=== PATIENT | female | born 1995 | race Caucasian/White ===

== ENCOUNTER → 2017-08-17 18:49 | Outpatient (CLI) | payer MEDICAID, SELFPAY ==
[2015-03-02 20:17] VITALS: BMI 22.6
[2015-03-04 14:00] VITALS: BP 112/70
[2017-08-17 20:37] LABS: Chlamydia Trachomatis by PCR Negative (Negative); Neisserai gonorrhoeae by PCR Negative (Negative); Probe Check PASS; Sample Adequacy Control PASS; Specimen Processing Control PASS
[2017-08-22 17:03] LABS: HPV Reflexed? NOT INDICATED
== END ==
PROVIDERS: Visit Provider Obstetrics & Gynecology
DX: Z11.3 Encounter for screening for infections with a predominantly sexual mode of transmission (principal); Z12.4 Encounter for screening for malignant neoplasm of cervix
CPT/HCPCS: 87491; 87591; 88175; G0145

== ENCOUNTER → 2017-09-01 15:19 | Outpatient (CLI) | payer MEDICAID, SELFPAY ==
[2017-09-01 17:42] LABS: Absolute Lymphocyte Count 1.69 X10^3/ul (0.83-4.51); Absolute Neutrophil Count 4.7 X10^3/uL (2.0-7.7); Basophil# 0.02 X10^3/uL; Basophil% 0.3 % (0-1); Eosinophils% 1.4 % (0-5); Hematocrit 36.5 % (37-47); Hemoglobin 13.1 g/dl (12.0-15.0); Lymphocyte # 1.69 X10^3/ul (4.0); Lymphocyte % 23.3 % (19-41); Mean Corp Hgb Conc 35.9 g/gl (32-36); Mean Corpuscular Volume 83.7 fL (81-99); Mean Platelet Vol. 11.2 fl (6.2-12.0); Monocyte# 0.72 X10^3/uL; Monocyte% 9.9 % (0-10); Neutrophil # 4.73 X10^3/uL (2.7-7.7); Neutrophil % 65.1 % (47-70); Platelet Count 184 K/mm3 (150-450); RBC Distribution Width CV 12.5 % (11.6-14.6); RBC Distribution Width SD 37.7 fl (35.1-43.9); Red Blood Count 4.36 M/mm3 (4.2-5.4); White Blood Count 7.3 K/mm3 (4.4-11.0)
[2017-09-01 17:43] LABS: POSITIVE COUNT NO; POSITIVE DIFFERENTIAL NO; POSITIVE MORPHOLOGY NO
[2017-09-01 17:55] LABS: Color, Urine Straw (Yellow); Glucose, Dipstick Normal (Normal); Ketone-Dipstick Negative (Negative); Leukocyte Esterase-Dipstick 100 /ul (Negative); Nitrite-Dipstick Negative (Negative); Occult Blood-Urine Negative /ul (Negative); Protein-Dipstick Negative (Negative); Urine Bilirubin Dipstick Negative (Negative); Urine Clarity Clear (Clear); Urine Urobilinogen Normal (Normal); Urine pH 6.5 (5.0 - 8.0)
[2017-09-01 18:27] LABS: Thyroid Stim Hormone (TSH) 0.62 uIU/mL (0.358-3.74)
[2017-09-01 18:33] LABS: HIV - WCH Non-Reactive (Nonreactive); Rubella IgG 98.9 IU/mL
[2017-09-01 18:46] LABS: COTININE Drug Screen Negative (<200 ng/mL)
[2017-09-01 20:01] LABS: Amphetamine Urine VISTA NEGATIVE (<1000 ng/mL); Barbiturate Urine VISTA NEGATIVE (< 200 ng/mL); Benzodiazepine Urine VISTA NEGATIVE (< 200 ng/mL); Cocaine Urine VISTA NEGATIVE (< 300 ng/mL); Ecstacy Urine VISTA NEGATIVE (< 500 ng/mL); Methadone Urine VISTA NEGATIVE (< 300 ng/mL); PCP Urine VISTA NEGATIVE (< 25 ng/mL); THC Urine VISTA NEGATIVE (< 50 ng/mL); Vista UDS pH Range 6
[2017-09-03 01:51] LABS: Prenatal RPR NONREACTIVE (NONREACTIVE)
[2017-09-03 11:11] LABS: HEPATITIS B SURFACE AG Negative (Negative)
[2017-09-03 11:12] LABS: Hep C Antibodies 0.1 s/co ratio (0.0-0.9)
== END ==
PROVIDERS: Visit Provider Obstetrics & Gynecology
DX: Z34.81 Encounter for supervision of other normal pregnancy, first trimester (principal)
CPT/HCPCS: 36415; 80307; 81002; 84443; 85025; 86703; 86762; 86803; 87340

== ENCOUNTER → 2018-01-10 13:57 | Outpatient (CLI) | payer MEDICAID, SELFPAY ==
[2018-01-10 14:34] LABS: Hematocrit 29.7 % (37-47); Hemoglobin 10.3 g/dl (12.0-15.0); Mean Corp Hgb Conc 34.7 g/gl (32-36); Mean Corpuscular Hgb 30.2 pg (27.0-32.0); Mean Corpuscular Volume 87.1 fL (81-99); Mean Platelet Vol. 10.2 fl (6.2-12.0); Platelet Count 163 K/mm3 (150-450); RBC Distribution Width CV 13.1 % (11.6-14.6); RBC Distribution Width SD 41.3 fl (35.1-43.9); Red Blood Count 3.41 M/mm3 (4.2-5.4); White Blood Count 7.5 K/mm3 (4.4-11.0)
[2018-01-10 14:39] LABS: Scan Indicated on CBC? Y/N NO
[2018-01-10 14:57] LABS: Glucose Challenge Gest 1H 50g 143 mg/dL (70-140)
== END ==
PROVIDERS: Visit Provider Obstetrics & Gynecology
DX: Z34.82 Encounter for supervision of other normal pregnancy, second trimester (principal)
CPT/HCPCS: 36415; 82950; 85027

== ENCOUNTER → 2018-01-16 09:43 | Outpatient (CLI) | payer MEDICAID, SELFPAY ==
[2018-01-16 10:29] LABS: Glucose GTT-Gestation. Fasting 76 mg/dL (<105)
[2018-01-16 12:07] LABS: Glucose GTT-Gestational 1 Hr 158 mg/dL (<190)
[2018-01-16 13:08] LABS: Glucose GTT-Gestational 2 Hr 162 mg/dL (<165)
[2018-01-16 14:17] LABS: Glucose GTT-Gestational 3 Hr 138 L (<145)
== END ==
PROVIDERS: Visit Provider Obstetrics & Gynecology
DX: O24.912 Unspecified diabetes mellitus in pregnancy, second trimester (principal)
CPT/HCPCS: 36415; 82951; 82952

== ENCOUNTER → 2018-03-08 16:13 | Outpatient (CLI) | payer MEDICAID, SELFPAY ==
[2018-03-08 18:29] LABS: Group B Strep DNA By PCR Negative (Negative); Internal Control PASS; Probe Check PASS; Specimen Processing Control PASS
== END ==
PROVIDERS: Visit Provider Obstetrics & Gynecology
DX: Z36.85 Encounter for antenatal screening for Streptococcus B (principal)
CPT/HCPCS: 87081; 87653

== ENCOUNTER 2018-03-24 13:30 | Inpatient (IN) | payer MEDICAID, SELFPAY ==
[2018-03-24 13:04] VITALS: BMI 21.2
[2018-03-24 13:20] LABS: ROM Internal Control Test YES-OK TO RESULT pt. (Internal QC); ROM Patient Test POSITIVE (Negative)
[2018-03-24] MEDS: Lactated Ringers 1,000 ML 50 ML IV (13:45)
[2018-03-24 14:07] LABS: Hematocrit 33.2 % (37-47); Mean Corp Hgb Conc 33.1 g/gl (32-36); Mean Corpuscular Hgb 29.6 pg (27.0-32.0); Mean Corpuscular Volume 89.5 fL (81-99); Mean Platelet Vol. 11.1 fl (6.2-12.0); Platelet Count 136 K/mm3 (150-450); RBC Distribution Width CV 13.7 % (11.6-14.6); RBC Distribution Width SD 44.5 fl (35.1-43.9); Red Blood Count 3.71 M/mm3 (4.2-5.4); Scan Indicated on CBC? Y/N NO; White Blood Count 9.1 K/mm3 (4.4-11.0)
[2018-03-24 14:19] LABS: Amphetamine Urine VISTA NEGATIVE (<1000 ng/mL); Barbiturate Urine VISTA NEGATIVE (< 200 ng/mL); Benzodiazepine Urine VISTA NEGATIVE (< 200 ng/mL); Cocaine Urine VISTA NEGATIVE (< 300 ng/mL); Ecstacy Urine VISTA NEGATIVE (< 500 ng/mL); Methadone Urine VISTA NEGATIVE (< 300 ng/mL); PCP Urine VISTA NEGATIVE (< 25 ng/mL); THC Urine VISTA NEGATIVE (< 50 ng/mL); Vista UDS pH Range 7
[2018-03-24] MEDS: Oxytocin 30 units/NS 500 ml 30 UNITS/500 ML IV.SOLN IV (14:30)
[2018-03-24] MEDS: Oxytocin 30 units/NS 500 ml 30 UNITS/500 ML IV.SOLN 334 UNITS IV (18:30)
--- NOTE | 2018-03-24 18:51 | PCM.OB.VAG ---
Vaginal Delivery Maternal Presentation: Active Labor 38w3d ega presenting with SROM at home. Amniotic Membrane Rupture Type: Spontaneous at home Rupture of Membrane time: 0630 Amniotic Fluid Description: Clear Final DANUTA: 04/04/18 Final DANUTA Source: US <20 weeks Gestational age: 38 Weeks and 3 Days Date of Procedure: 03/24/18 Pre-Operative Diagnosis: Labor Post-Operative Diagnosis: Same Surgery/ Procedure Performed: Spontaneous Vaginal Delivery Type of Anesthesia: None Description of Procedure: Presented with SROM at home with clear fluid noted. Progressed in spontaneous labor and given pitocin augmentation. Progressed to FD then pushed for less than 10 minutes to delivery a live female without complication. Apgars 8/9. Delayed cord clamping employed. Active cry shortly after delivery. Mouth suctioned with bulb suction. Baby then placed on mom's chest for skin to skin. Cord then clamped and cut. The placenta was delivered spontaneously intact with a centrally located 3VC. The uterus contracted well. Inspection revealed an intact cervix, upper vagina. A small superficial posterior vaginal scratch repaired with one figure of eight suture of 2-0 Vicryl. Presentation: Vertex Placental Delivery Description: Spontaneous Placenta Disposition: [facility] Percentage of Placenta Abruption: 0 Cord Vessel Description: 3 Vessels Nuchal Cord Compression: With compression Cord Entanglement: None Estimated Blood Loss: 200cc A gender: Female (1 minute): 8 (5 minute): 9 Episiotomy Description: None Laceration: None Medications given after delivery: IV Pitocin Complications: None
[2018-03-24] MEDS: Oxytocin 30 units/NS 500 ml 30 UNITS/500 ML IV.SOLN 167 UNITS IV (19:00)
--- NOTE | 2018-03-24 19:03 | PCM.DCVAG ---
Discharge Diet: No Restrictions Discharge Activity: Return to Normal Activity, May Drive, May Shower Return to work on:: 05/21/18 May resume sexual activity in: 4-6 weeks Call your doctor if your incision/area has: Sudden Increased Bleeding, Increased Pain/ Swelling, Foul Smelling Discharge Call your doctor if you observe: Fever of 101 or Higher, Inability to urinate, Inability to have a bowel movement, Using more than one pad per hour, Shortness of breath, Chest pain, Calf discomfort, Uncontrolled pain Cleanse incision/area with: Soap & Water Additional Instructions: If you experience any of the following, contact your healthcare provider. Bleeding that soaks a pad every hour for 2 hours Fever 100.4 or higher Unrelieved incision or abdominal pain Swelling, redness, discharge or bleeding from your incision or episiotomy site Your incision begins to separate Problems urinating (including inability to urinate or burning while urinating). Visual changes Severe headache Flu-like symptoms Pain or redness in one of both of your breasts Pain, warmth, tenderness or swelling in your legs, especially the calf area Frequent nausea and vomiting Symptoms of depression or anxiety If you experience any of the following, call 911 or go to the nearest Emergency Room. Chest pain Problems breathing Seizure activity Partial or complete paralysis of a body part, slurred speech, weakness or drooping of the face, or a sudden inability to walk or hold your balance Allergies/Adverse Reactions: Allergies No Known Allergies Allergy (Verified 03/02/15 20:18) Medications to take at Discharge Ferrous Sulfate [Iron Supplement] 325 mg PO BID #60 tablet 03/04/15 Ibuprofen 600 mg PO Q6H PRN PRN #30 tab 03/24/18 The following prescriptions were given: Ibuprofen 600 mg PO Q6H PRN PRN #30 tab PRN Reason: pain or cramping Please Follow Up With: Javon Polo MD When: 6 weeks Primary Care Physician: Care Physician,No Primary [Primary Care Provider] - Test Results: Test results from this visit will be discussed in further detail at your follow-up appointment, if applicable. Proposed Discharge Date: 03/26/18
[2018-03-24] MEDS: 0.9% Saline Lock 10 ML Syringe IV (20:09)
[2018-03-24 22:42] VITALS: BP 112/71; PULSE 89; RESP 15; TEMP 37.7; O2SAT 98
[2018-03-25 03:16] VITALS: BP 109/72; PULSE 92; RESP 16; TEMP 36.5; O2SAT 100
[2018-03-25 05:41] LABS: Hematocrit 30.4 % (37-47); Hemoglobin 10.2 g/dl (12.0-15.0); Mean Corp Hgb Conc 33.6 g/gl (32-36); Mean Corpuscular Hgb 29.7 pg (27.0-32.0); Mean Corpuscular Volume 88.4 fL (81-99); Platelet Count 122 K/mm3 (150-450); RBC Distribution Width CV 13.6 % (11.6-14.6); RBC Distribution Width SD 43.7 fl (35.1-43.9); Red Blood Count 3.44 M/mm3 (4.2-5.4); White Blood Count 10.7 K/mm3 (4.4-11.0)
[2018-03-25 05:42] LABS: Scan Indicated on CBC? Y/N NO
[2018-03-25 07:58] VITALS: BP 105/61; PULSE 81; RESP 16; TEMP 36.9
--- NOTE | 2018-03-25 08:16 | PCM.PN.OB ---
Subjective: Doing well. No specific complaints. Bleeding light. Objective: Afeb VSS hgb stable - Physical Exam General: Alert, Oriented x3, Cooperative, No apparent distress Lungs: Clear to auscultation, Normal air movement Cardiovascular: Regular rate, Regular Rhythm Abdomen: Soft, Non Tender, Non-Distended, - - Fundus firm nontender Extremities: No edema, No Calf Tenderness Skin: No rashes Neurological: Neuro grossly intact Psych/Mental Status: Normal Affect Comment: Lochia light Vital Signs Temp Pulse Resp BP Pulse Ox 98.5 F 81 16 105/61 100 03/25/18 07:58 03/25/18 07:58 03/25/18 07:58 03/25/18 07:58 03/25/18 03:16 Oxygen Delivery Method Room Air Weight: 131 lb 6.328 oz Body Mass Index (BMI) 21.2 Intake and Output for Last 24 Hours 03/23/18 03/24/18 03/25/18 23:59 23:59 23:59 Intake Total 200 / 200 Output Total 1100 / 1100 Balance -900 / -900 Laboratory Tests Past 24 Hrs 03/24/18 03/24/18 03/24/18 13:05 13:45 13:45 WBC 9.1 RBC 3.71 L Hgb 11.0 L Hct 33.2 L MCV 89.5 MCH 29.6 MCHC 33.1 RDW 13.7 RDW Differential 44.5 H Plt Count 136 L MPV 11.1 Vag Amniotic Fld Detect POSITIVE H Urine Opiates Screen Urine Methadone Screen Ur Barbiturates Screen Ur Phencyclidine Scrn Ur Amphetamines Screen U Methamphetamin-MDMA U Benzodiazepines Scrn Urine Cocaine Screen U Cannabinoids Screen Ur Drug Screen Comment Blood Type A POSITIVE Antibody Screen NEGATIVE 03/24/18 03/25/18 13:45 05:20 WBC 10.7 RBC 3.44 L Hgb 10.2 L Hct 30.4 L MCV 88.4 MCH 29.7 MCHC 33.6 RDW 13.6 RDW Differential 43.7 Plt Count 122 L MPV 11.0 Vag Amniotic Fld Detect Urine Opiates Screen NEGATIVE Urine Methadone Screen NEGATIVE Ur Barbiturates Screen NEGATIVE Ur Phencyclidine Scrn NEGATIVE Ur Amphetamines Screen NEGATIVE U Methamphetamin-MDMA NEGATIVE U Benzodiazepines Scrn NEGATIVE Urine Cocaine Screen NEGATIVE U Cannabinoids Screen NEGATIVE Ur Drug Screen Comment Blood Type Antibody Screen Medical Necessity - Tobacco Use Smoking Status: Never smoker Assessment/Plan Doing well on PP day#1. Continue routine PP care.
[2018-03-25] MEDS: Ferrous Sulfate 325 MG Tablet PO ×2 (11:07→16:24)
[2018-03-25 14:00] VITALS: BP 105/68; PULSE 87; RESP 16; TEMP 36.9
[2018-03-25 16:00] VITALS: BP 105/68; PULSE 87; RESP 18; TEMP 36.9
[2018-03-25] MEDS: Senna/Docusate Sodium 1 Tablet PO (16:24)
[2018-03-25 19:45] VITALS: BP 106/70; PULSE 84; RESP 16; TEMP 37.1
[2018-03-26 03:00] VITALS: BP 103/58; PULSE 68; RESP 16; TEMP 36.9
--- NOTE | 2018-03-26 07:14 | PCM.PN.OB ---
Subjective: No speciifc complaints. Bleeding light. Bottle feeding. Objective: Afeb VSS Hgb stable - Physical Exam General: Alert, Oriented x3, Cooperative, No apparent distress Lungs: Clear to auscultation, Normal air movement Cardiovascular: Regular rate, Regular Rhythm Abdomen: Non Tender, Non-Distended, - - Fundus firm nontender Extremities: No edema, No Calf Tenderness Skin: No rashes Neurological: Neuro grossly intact Psych/Mental Status: Normal Affect Comment: Lochia light Vital Signs Temp Pulse Resp BP Pulse Ox 98.4 F 68 16 103/58 L 100 03/26/18 03:00 03/26/18 03:00 03/26/18 03:00 03/26/18 03:00 03/25/18 03:16 Oxygen Delivery Method Room Air Weight: 131 lb 6.328 oz Body Mass Index (BMI) 21.2 Intake and Output for Last 24 Hours 03/24/18 03/25/18 03/26/18 23:59 23:59 23:59 Intake Total 200 / 200 Output Total 1100 / 1100 Balance -900 / -900 Medical Necessity - Tobacco Use Smoking Status: Never smoker Assessment/Plan Doing well on PP day#2. Cleared for discharge home today. Home going instructions and warnings given.
--- NOTE | 2018-03-26 07:16 | PCM.DC.SUM ---
Discharge Date and Diagnosis Date of Admission: 03/24/18 Date of Discharge: 03/26/18 - Primary Discharge Diagnosis S/P Hospital Course and Treatment Consultations 03/24/18 13:40 Consult: Anesthesia Routine Comment: Reason For Exam: LABOR Operations: None Procedures: - - Summary of Care Provided: The patient is a 22 year old F [admitted in active labor. Progressed to FD then pushed for a short time to deliver a live without complication. Post course unremarkable. Discharged home on PP day#2.] Discharge Diet: No Restrictions Discharge Activity: Return to Normal Activity, May Drive, May Shower Return to work on:: 05/21/18 May resume sexual activity in: 4-6 weeks Call your doctor if your incision/area has: Sudden Increased Bleeding, Increased Pain/ Swelling, Foul Smelling Discharge Call your doctor if you observe: Fever of 101 or Higher, Inability to urinate, Inability to have a bowel movement, Using more than one pad per hour, Shortness of breath, Chest pain, Calf discomfort, Uncontrolled pain Cleanse incision/area with: Soap & Water Home Medications: Medications to take at Discharge Ferrous Sulfate [Iron Supplement] 325 mg PO BID #60 tablet 03/04/15 Ibuprofen 600 mg PO Q6H PRN PRN #30 tab 03/24/18 Following Prescrptions Were Given to Patient: Ibuprofen 600 mg PO Q6H PRN PRN #30 tab PRN Reason: pain or cramping Primary Care Physician: Care Physician,No Primary [Primary Care Provider] - Please Follow Up With: Javon Polo MD When: 6 weeks Disposition: Home Minutes spent on discharge:: 15 Patient Condition:: Good Medical Necessity - Tobacco Use Smoking Status: Never smoker Meaningful Use Info Meaningful Use Diagnoses (Choose all that apply): None applicable
[2018-03-26] MEDS: Senna/Docusate Sodium 1 Tablet PO (08:10)
[2018-03-26] MEDS: Ferrous Sulfate 325 MG Tablet PO (08:10)
[2018-03-26 08:21] VITALS: BP 109/72; PULSE 74; RESP 18; TEMP 37
== END 2018-03-26 12:40 | disposition home or self-care (01) | DRG 373 ==
LOC: WPOUT 13:36 → WP 18:35
PROVIDERS: Admitting Provider Obstetrics & Gynecology; Visit Provider Obstetrics & Gynecology
DX: O69.81X0 Labor and delivery complicated by cord around neck, without compression, not applicable or unspecified (principal); O71.4 Obstetric high vaginal laceration alone; Z3A.38 38 weeks gestation of pregnancy; Z37.0 Single live birth
CPT/HCPCS: 59050; 80307; 84112; 85027; 86850; 86900; 99218; J7120; A4216; G0378

== ENCOUNTER → 2019-04-04 | Outpatient (CLI) | payer MEDICAID, SELFPAY ==
[2019-04-04 15:52] LABS: Absolute Lymphocyte Count 1.32 X10^3/uL (0.83-4.51); Absolute Neutrophil Count 5.7 X10^3/uL (2.0-7.7); Basophil# 0.02 X10^3/uL; Basophil% 0.3 % (0-1); Eosinophil# 0.07 X10^3/uL; Eosinophils% 0.9 % (0-5); Hematocrit 33.1 % (37-47); Hemoglobin 11.2 g/dL (12.0-15.0); Lymphocyte # 1.32 X10^3/ul (4.0); Lymphocyte % 16.8 % (19-41); Mean Corp Hgb Conc 33.8 g/dL (32-36); Mean Corpuscular Hgb 29.8 pg (27.0-32.0); Mean Platelet Vol. 10.8 fl (6.2-12.0); Monocyte# 0.75 X10^3/uL; Monocyte% 9.5 % (0-10); NRBC Flagged by Analyzer 0 % (0-5); Neutrophil # 5.69 X10^3/uL (2.7-7.7); Neutrophil % 72.1 % (47-70); Platelet Count 184 K/mm3 (150-450); RBC Distribution Width CV 13.5 % (11.6-14.6); RBC Distribution Width SD 43.5 fl (35.1-43.9); Red Blood Count 3.76 M/mm3 (4.2-5.4); White Blood Count 7.9 K/mm3 (4.4-11.0)
[2019-04-04 16:07] LABS: Amphetamine Urine VISTA NEGATIVE (<1000 ng/mL); Barbiturate Urine VISTA NEGATIVE (< 200 ng/mL); Benzodiazepine Urine VISTA NEGATIVE (< 200 ng/mL); Cocaine Urine VISTA NEGATIVE (< 300 ng/mL); Ecstacy Urine VISTA NEGATIVE (< 500 ng/mL); Methadone Urine VISTA NEGATIVE (< 300 ng/mL); PCP Urine VISTA NEGATIVE (< 25 ng/mL); THC Urine VISTA NEGATIVE (< 50 ng/mL); Vista UDS pH Range 6
[2019-04-04 16:20] LABS: Color, Urine Yellow (Yellow); Glucose, Dipstick Normal (Normal); Ketone-Dipstick Negative (Negative); Leukocyte Esterase-Dipstick 100 /ul (Negative); Nitrite-Dipstick Negative (Negative); Occult Blood-Urine 150 /ul (Negative); Protein-Dipstick Negative (Negative); Urine Bilirubin Dipstick Negative (Negative); Urine Clarity Clear (Clear); Urine Urobilinogen Normal (Normal)
[2019-04-05 02:39] LABS: Prenatal RPR NONREACTIVE (NONREACTIVE)
[2019-04-05 11:09] LABS: HIV - WCH Non-Reactive (Nonreactive); Hepatitis B Surface Antigen Non-Reactive (Nonreactive); Hepatitis C Antibody Non-Reactive (Nonreactive); Rubella IgG 113.6 IU/mL
== END | disposition home or self-care (01) ==
LOC: WOBLAB 14:00
PROVIDERS: Visit Provider Obstetrics & Gynecology
DX: Z34.82 Encounter for supervision of other normal pregnancy, second trimester (principal)
CPT/HCPCS: 36415; 80307; 81002; 84443; 85025; 86703; 86762; 86803; 87340

== ENCOUNTER → 2019-06-06 13:05 | Outpatient (CLI) | payer MEDICAID, SELFPAY ==
[2019-06-06 13:49] LABS: Hematocrit 29.1 % (37-47); Hemoglobin 9.6 g/dL (12.0-15.0); Mean Corpuscular Hgb 29.1 pg (27.0-32.0); Mean Corpuscular Volume 88.2 fL (81-99); Mean Platelet Vol. 10.8 fl (6.2-12.0); Platelet Count 151 K/mm3 (150-450); RBC Distribution Width CV 12.7 % (11.6-14.6); RBC Distribution Width SD 40.8 fl (35.1-43.9); White Blood Count 5.8 K/mm3 (4.4-11.0)
[2019-06-06 15:58] LABS: Glucose Challenge Gest 1H 50g 127 mg/dL (70-140)
== END ==
PROVIDERS: Visit Provider Obstetrics & Gynecology
DX: Z34.83 Encounter for supervision of other normal pregnancy, third trimester (principal)
CPT/HCPCS: 36415; 82950; 85027

== ENCOUNTER → 2019-08-08 16:26 | Outpatient (CLI) | payer MEDICAID, SELFPAY | PROVIDERS: Referring Provider Advanced Practice Midwife; Visit Provider Advanced Practice Midwife | DX: Z36.85 Encounter for antenatal screening for Streptococcus B (principal) | CPT/HCPCS: 87081 ==

== ENCOUNTER 2019-08-29 23:49 | Inpatient (IN) | payer MEDICAID, SELFPAY ==
[2019-08-29 23:55] VITALS: BMI 23.3
[2019-08-30] MEDS: Lactated Ringers 1,000 ML 50 ML IV (00:50)
[2019-08-30] MEDS: miSOPROStol 25 MCG TABLET PO (01:03)
[2019-08-30 01:07] LABS: Absolute Lymphocyte Count 1.82 X10^3/uL (0.83-4.51); Absolute Neutrophil Count 4.4 X10^3/uL (2.0-7.7); Basophil# 0.01 X10^3/uL; Basophil% 0.1 % (0-1); Eosinophil# 0.12 X10^3/uL; Eosinophils% 1.7 % (0-5); Hematocrit 32.8 % (37-47); Hemoglobin 11.3 g/dL (12.0-15.0); Lymphocyte # 1.82 X10^3/ul (4.0); Lymphocyte % 25.2 % (19-41); Mean Corp Hgb Conc 34.5 g/dL (32-36); Mean Corpuscular Hgb 30.2 pg (27.0-32.0); Mean Corpuscular Volume 87.7 fL (81-99); Monocyte# 0.88 X10^3/uL; Monocyte% 12.2 % (0-10); NRBC Flagged by Analyzer 0 % (0-5); Neutrophil # 4.36 X10^3/uL (2.7-7.7); Neutrophil % 60.2 % (47-70); Platelet Count 136 K/mm3 (150-450); RBC Distribution Width SD 48.2 fl (35.1-43.9); Red Blood Count 3.74 M/mm3 (4.2-5.4); White Blood Count 7.2 K/mm3 (4.4-11.0)
[2019-08-30] MEDS: Lactated Ringers 500 ML 999 ML IV (02:09)
--- NOTE | 2019-08-30 05:04 | HP.PCM_ITS ---
- Problem List (1) 39 weeks gestation of Status: Acute (2) Elective induction of labor planned Status: Acute History Date of Admission: 08/29/19 Final DANUTA: 08/30/19 Final DANUTA Source: US <20 weeks Gestational age: 40 Weeks and 0 Days History of this : This is a 23 year-old, G [3], P [2], at 40 weeks gestational age. Here for elec tive induction of labor. Allergies No Known Allergies Allergy (Verified 03/02/15 20:18) Smoking Status: Never smoker Alcohol: None Number of Fetus(es): 1 NST - FHR Rate Baby A Baseline: 140 Variability:: Moderate Accelerations:: 15 x 15 Decelerations:: None NST Reactive:: Yes FHR Category:: Category I Uterine Activity:: Q6 minutes History Past Pregnancies: Past Pregnancies Delivery Date Name GA/ Weeks Outcome Route Wt Sex Labor Length Delivery Location Renata FOB 02/28 41 live vag 8.3 F 23 Mariama None 04/03 38 live vag 6.14 F 12 Mariama None Labs: Mom's Labs & Results 08/30/19 08/30/19 00:50 00:50 WBC 7.2 RBC 3.74 L Hgb 11.3 L Hct 32.8 L MCV 87.7 MCH 30.2 MCHC 34.5 RDW Std Deviation 48.2 H RDW Coeff of Ricardo 15.0 H Plt Count 136 L MPV 11.0 Immature Gran % (Auto) 0.600 Neut % (Auto) 60.2 Lymph % (Auto) 25.2 [place] % (Auto) 12.2 H Eos % (Auto) 1.7 Baso % (Auto) 0.1 Absolute Neuts (auto) 4.4 Absolute Lymphs (auto) 1.82 Nucleated RBC % 0 Blood Type A POSITIVE Antibody Screen NEGATIVE Course Did the patient receive Yes care? Labs Blood Type: A RH: POSITIVE RPR/VDRL/Syphilis Nonreactive Rubella status Immune HbSAg Negative Date Done: 04/04/19 Chlamydia Negative Gonorrhea Negative HIV/AIDS Non-Reactive Group B Strep: Negative Current Obstetrical History Gestational Diabetes No Incompetent Cervix No Infertility No IUGR No Macrosomia No Hypertension/Pre-eclampsia No Placenta Previa/Abruption No PTL/PROM No Uterine anomaly No Oligohydramnios No Polyhydramnios No Multiple gestation No Past Medical History Asthma No Diabetes No Hypertension No Heart disease No Mitral valve prolapse No Neurologic/Seizure disorder/ No Migraines Kidney disease No Liver disease No Varicosities No Clotting disorders/Hx of DVT No Thyroid Dysfunction No Other medical diseases No Psychiatric disorders No Major trauma No Abnormal PAP smear No Sleep apnea No Mammogram in the last 2 years No Social History Marital Status: SINGLE Alleged father Frederick Hx Smoking No Smoking Status Never smoker Expected Delivery Method: Spontaneous Vaginal Number of Visits: 12 Review of Systems Constitutional: Denies: Chills, Fever, Weight Change HEENT: Denies: Head Aches, Sinus Congestion, Sinus Drainage Cardiovascular: Denies: Chest Pain, Palpitations Respiratory: Denies: Cough, Shortness of breath at rest, Sputum production Gastrointestinal: Denies: Abdominal Pain, Nausea, Vomiting Genitourinary: Denies: Dysuria Musculoskeletal: Denies: Joint Pain, Joint Tenderness Skin: Denies: Rash, Wounds Neurological: Denies: Numbness, Tingling, Focal weakness Psychiatric: Denies: Anxiety, Depression, Homicidal Ideations, Suicidal Ideations Hematologic/ Lymphatic: Denies: Easy Bruising, Easy Bleeding Physical Exam General: Alert, Oriented x3, No apparent distress HEENT: Atraumatic, Normocephalic. Negative for: Thyromegaly, Lymphadenopathy Cardiovascular: Regular rate, Regular Rhythm Lungs: Clear to auscultation Abdomen: Bowel Sounds Present, Gravid Neurological: Deep Tendon Reflexes 2+/4 and Symmetrical, Neuro grossly intact [facility] LAB[employer]ER: Normal external genitalia. Negative for: Vulvar lesions Estimated gestational size: Appropriate for gestational size Presentation: Cephalic Cervix Dilation (cm): 3 - per RN report Station: -2 Effacement (%): 40 Assessment/Plan All Active Problems 39 weeks gestation of (Acute) Elective induction of labor planned (Acute) A: This is a 23 year-old, G [3], P [2], at 40 weeks gestational age. Elective induction of labor with Cytotec SVE 340/-2 per RN report after 1st dose of Cytotec UC Q2 minutes P: Continue to allow to labor Recheck SVE [id number] Expect
[2019-08-30] MEDS: miSOPROStol 25 MCG TABLET VAGINAL (08:32)
--- NOTE | 2019-08-30 09:11 | PN_ITS ---
Progress Note S: Feeling well and reports contractions are a 7/10 on the pain scale. Excited for delivery O: VSS with maternal FHR slightly elevated 90-110 FHR baseline 140, + accels, - decels, moderate variability SVE per RN report at 0520 6/70/-2. SVE at 0830 per designer/writer's check 1/thick/-3. External OS is very thin and at 7cm, but thick funneling to 1cm UC 2-4minutes A: Cervix still thick and needs to thin out UC 2-4 minutes on her own FHR category I reactive P: One dose of Cytotec vaginal placed near cervix Recheck SVE at 1230 Expect
[2019-08-30] MEDS: Lactated Ringers 1,000 ML 200 ML IV ×2 (10:38→15:38)
--- NOTE | 2019-08-30 13:00 | PCM.PN.BLA ---
Progress Note S: Feeling well, but contractions are feeling a lot stronger O: VSS FHR baseline 140, + accels, - decels, moderate variability SVE external OS 9, internal OS 5, 50%/-1 soft posterior UC Q 2 minutes A: Cervix remains thicker/swollen at 8 o'clock to 2 o'clock FHR category I reactive P: Discussed positions to help cervix thin out. Will try a deep hands and knees and tank stave assembler position. If cervix remains swollen will try IV Benadryl Recheck SVE at 1430 or with urge to push Expect
[2019-08-30] MEDS: Oxytocin 30 units/NS 500 ml 30 UNITS/500 ML IV.SOLN 334 UNITS IV (16:28)
[2019-08-30] MEDS: Methylergonovine 0.2 MG/ML Ampul IM (17:02)
[2019-08-30] MEDS: Cefazolin 1 GM/50 ML BAG IV (17:32)
[2019-08-30] MEDS: 0.9% Saline Lock 10 ML Syringe IV (19:23)
[2019-08-30 19:37] VITALS: BP 107/69; PULSE 95; RESP 18; TEMP 37.1
--- NOTE | 2019-08-30 20:37 | PCM.OPRPT ---
Problem List (1) 39 weeks gestation of Status: Inactive (2) Elective induction of labor planned Status: Inactive (3) S/P NVD Status: Acute Vaginal Delivery Maternal Presentation: Elective Induction Method of Induction: Cytotec Amniotic Membrane Rupture Type: Artificial Rupture of Membrane time: 1543 Amniotic Fluid Description: Clear Final DANUTA: 08/30/19 Final DANUTA Source: US <20 weeks Gestational age: 40 Weeks and 0 Days Date of Procedure: 08/30/19 Pre-Operative Diagnosis: IOL Post-Operative Diagnosis: S/P NVD Surgery/ Procedure Performed: Spontaneous Vaginal Delivery Type of Anesthesia: Local with 1% lidocaine Description of Procedure: When patient complete +1 started pushing and functional tester typewriters called to room. On arrival patient pushing complete +2. Pushed well with spontaneous delivery of head. Snug shoulders and in [place], a viable male born with Apgars of 9/9 from vertex to CHERYL presentation with clear amniotic fluid and normal three-vessel placenta. Pitocin by IV initiated per protocol. Attending called to assess laceration. Second degree perineal laceration repaired with a double 3.[address] Muse as well as Banjo used for retained products. IM Methergine given. EBL 200. Antibiotic order per MD for prophylaxis after Banjo. Sponge and instrument count correct x 2. Presentation: Vertex, CHERYL Placental Delivery Description: Spontaneous Placenta Disposition: [facility] Cord Vessel Description: 3 Vessels Cord Entanglement: None Estimated Blood Loss: 200 Infant A gender: Male (1 minute): 9 (5 minute): 9 Episiotomy Description: None Laceration: Perineal Extension/lac, 2nd degree Medications given after delivery: IV Pitocin, IM Methergin
--- NOTE | 2019-08-30 21:00 | DCINST_ITS ---
Discharge Diet: No Restrictions Discharge Activity: Return to Normal Activity, May not drive while taking narcotic pain medications., May Shower May resume sexual activity in: 4-6 weeks - until vaginal laceration is healed and bleeding has ceased for at least one week Additional Activity Instructions:: Nothing in the vagina for 4-6 weeks. You may return to work/school in 6 weeks. Call your doctor if your incision/area has: Continuous Slow Oozing, Sudden Inc reased Bleeding, Increased Pain/ Swelling, Increased Redness, Foul Smelling Discharge Call your doctor if you observe: Fever of 101 or Higher Instructions: After a Vaginal , Understanding Depression Additional Instructions: If you experience any of the following, contact your healthcare provider. * Bleeding that soaks a pad every hour for 2 hours * Fever 100.4 or higher * Unrelieved incision or abdominal pain * Swelling, redness, discharge or bleeding from your incision or episiotomy site * Your incision begins to separate * Problems urinating (including inability to urinate or burning while urinating). * Visual changes * Severe headache * Flu-like symptoms * Pain or redness in one of both of your breasts * Pain, warmth, tenderness or swelling in your legs, especially the calf area * Frequent nausea and vomiting * Symptoms of depression or anxiety If you experience any of the following, call 911 or go to the nearest Emergency Room. * Chest pain * Problems breathing * Seizure activity * Partial or complete paralysis of a body part, slurred speech, weakness or drooping of the face, or a sudden inability to walk or hold your balance Allergies/Adverse Reactions: Allergies No Known Allergies Allergy (Verified 03/02/15 20:18) Please Follow Up With: Ally Garcia CNM When: Call to make an appointment with your doctor in 2 weeks. Primary Care Physician: Care Physician,No Primary [Primary Care Provider] - Test Results: Test results from this visit will be discussed in further detail at your follow- up appointment, if applicable. Proposed Discharge Date: 09/01/19
--- NOTE | 2019-08-30 21:00 | PCM.DCVAG ---
Discharge Diet: No Restrictions Discharge Activity: Return to Normal Activity, May not drive while taking narcotic pain medications., May Shower May resume sexual activity in: 4-6 weeks - until vaginal laceration is healed and bleeding has ceased for at least one week Additional Activity Instructions:: Nothing in the vagina for 4-6 weeks. You may return to work/school in 6 weeks. Call your doctor if your incision/area has: Continuous Slow Oozing, Sudden Increased Bleeding, Increased Pain/ Swelling, Increased Redness, Foul Smelling Discharge Call your doctor if you observe: Fever of 101 or Higher Instructions: After a Vaginal , Understanding Depression Additional Instructions: If you experience any of the following, contact your healthcare provider. Bleeding that soaks a pad every hour for 2 hours Fever 100.4 or higher Unrelieved incision or abdominal pain Swelling, redness, discharge or bleeding from your incision or episiotomy site Your incision begins to separate Problems urinating (including inability to urinate or burning while urinating). Visual changes Severe headache Flu-like symptoms Pain or redness in one of both of your breasts Pain, warmth, tenderness or swelling in your legs, especially the calf area Frequent nausea and vomiting Symptoms of depression or anxiety If you experience any of the following, call 911 or go to the nearest Emergency Room. Chest pain Problems breathing Seizure activity Partial or complete paralysis of a body part, slurred speech, weakness or drooping of the face, or a sudden inability to walk or hold your balance Allergies/Adverse Reactions: Allergies No Known Allergies Allergy (Verified 03/02/15 20:18) Please Follow Up With: Ally Garcia CNM When: Call to make an appointment with your doctor in 2 weeks. Primary Care Physician: Care Physician,No Primary [Primary Care Provider] - Test Results: Test results from this visit will be discussed in further detail at your follow-up appointment, if applicable. Proposed Discharge Date: 09/01/19
[2019-08-31] VITALS: BP 111/75; PULSE 88; RESP 16; TEMP 37
[2019-08-31 04:10] VITALS: BP 106/59; PULSE 84; RESP 16; TEMP 37.2
[2019-08-31 09:26] VITALS: BP 111/72; PULSE 87; RESP 16; TEMP 37.2; O2SAT 99
--- NOTE | 2019-08-31 11:00 | PCM.PN.BLA ---
Progress Note Progress Note S: Feeling well. Reports normal bleeding. Just had her first BM which was normal. No pain at all O: VSS. Fundus u/1, firm, midline with palpable soft mass at RUQ. +BM A: Post vaginal delivery day #1 Infant male is bottle feeding Normal involution and course P: RN to watch bleeding and patient understands if passing any clots to report to RN. Will recheck fundus and abdomen in AM. If palpable mass still felt will get US to confirm bowel vs retained products. Son to still be circumcised and 24 hour testing to be done Stable to discharge home tomorrow To return to office in 2 weeks STROKE Vital Signs/Narrative: Vital Signs Temp Pulse Resp BP Pulse Ox 08/31/19 09:26 98.9 F 87 16 111/72 99
[2019-08-31 13:50] VITALS: BP 107/63; PULSE 109; RESP 16; TEMP 37; O2SAT 99
[2019-08-31] MEDS: 0.9% Saline Lock 10 ML Syringe IV (16:32)
[2019-08-31 16:34] VITALS: BP 104/70; PULSE 91; RESP 16; TEMP 37.1
[2019-08-31 20:15] VITALS: BP 109/69; PULSE 97; RESP 16; TEMP 37.4; O2SAT 98
[2019-09-01 02:00] VITALS: BP 110/69; PULSE 83; RESP 16; TEMP 36.9; O2SAT 97
[2019-09-01 07:35] VITALS: BP 122/66; PULSE 85; RESP 15; TEMP 37
[2019-09-01 12:10] VITALS: BP 111/55; PULSE 84; RESP 15; TEMP 37
--- NOTE | 2019-09-01 12:10 | PCM.PN.BLA ---
Progress Note Progress Note S: Feeling well. Reports normal bleeding, with no clots. Has had second BM. Denies using pain medication. Only using tucks pads which are helping with her laceration pain. O: VSS. Fundus u/1, firm, midline +BM A: Post vaginal delivery day #2 male is bottle feeding Normal involution and course P: Son was circumcised yesterday and is discharged Education given on depression, normal bleeding, contraception and laceration pain relief. Already has 2 week follow up scheduled on the , but to call or come in with any s/s of PPD or worsening pain.
== END 2019-09-01 12:20 | disposition home or self-care (01) | DRG 560 ==
PROVIDERS: Admitting Provider Obstetrics & Gynecology; Referring Provider Obstetrics & Gynecology; Visit Provider Obstetrics & Gynecology
DX: O48.0 Post-term pregnancy (principal); Z3A.40 40 weeks gestation of pregnancy; O70.1 Second degree perineal laceration during delivery; Z37.0 Single live birth
CPT/HCPCS: 59025; 59050; 85025; 86850; 86900; 86901; 99218; J7120; A4216; G0378

== ENCOUNTER → 2020-10-30 | Outpatient (CLI) | payer MEDICAID, SELFPAY ==
[2020-11-03 16:32] LABS: HPV Reflexed? NOT INDICATED
== END | disposition home or self-care (01) ==
LOC: LABSPEC 10:06
PROVIDERS: Visit Provider Obstetrics & Gynecology
DX: Z12.4 Encounter for screening for malignant neoplasm of cervix (principal)
CPT/HCPCS: 88175; G0145

== ENCOUNTER 2021-08-05 10:17 | Outpatient (CLI) | payer MEDICAID, SELFPAY ==
[2021-08-05 12:03] LABS: hCG Titer Quant., Serum 5941 mIU/mL (1-3)
== END 2021-08-05 23:59 | disposition short-term general hospital (02) ==
LOC: WOBLAB 10:24
PROVIDERS: Visit Provider Obstetrics & Gynecology
DX: O20.0 Threatened abortion (principal)
CPT/HCPCS: 36415; 84702

== ENCOUNTER 2021-08-09 12:04 | Outpatient (CLI) | payer MEDICAID, SELFPAY ==
[2021-08-09 12:54] LABS: hCG Titer Quant., Serum 557 mIU/mL (1-3)
== END 2021-08-09 23:59 | disposition short-term general hospital (02) ==
LOC: WOBLAB 12:05
PROVIDERS: Visit Provider Obstetrics & Gynecology
DX: O20.0 Threatened abortion (principal)
CPT/HCPCS: 36415; 84702

== ENCOUNTER 2021-08-16 09:31 | Outpatient (CLI) | payer MEDICAID, SELFPAY ==
[2021-08-16 11:02] LABS: hCG Titer Quant., Serum 55 mIU/mL (1-3)
== END 2021-08-16 23:59 | disposition short-term general hospital (02) ==
PROVIDERS: Visit Provider Obstetrics & Gynecology
DX: O20.0 Threatened abortion (principal)
CPT/HCPCS: 36415; 84702

== ENCOUNTER 2021-08-23 09:11 | Outpatient (CLI) | payer MEDICAID, SELFPAY ==
[2021-08-23 09:57] LABS: hCG Titer Quant., Serum 9 mIU/mL (1-3)
== END 2021-08-23 23:59 | disposition home or self-care (01) ==
LOC: WOBLAB 09:11
PROVIDERS: Visit Provider Obstetrics & Gynecology
DX: O20.0 Threatened abortion (principal)
CPT/HCPCS: 36415; 84702

== ENCOUNTER 2021-09-13 10:36 | Outpatient (CLI) | payer MEDICAID, SELFPAY ==
[2021-09-14 21:06] LABS: Chlamydia By Nucleic Acid AMP Negative (Negative)
[2021-09-15 14:14] LABS: Gonococcus By Nucleic Acid AMP Negative (Negative)
== END 2021-09-13 23:59 | disposition home or self-care (01) ==
LOC: LABSPEC 10:37
PROVIDERS: Visit Provider Obstetrics & Gynecology
DX: Z11.3 Encounter for screening for infections with a predominantly sexual mode of transmission (principal)
CPT/HCPCS: 87491; 87591